=== PATIENT | male | born 1965 | race Caucasian/White ===

== ENCOUNTER 2017-03-01 08:10 | Emergency (ER) | payer SELFPAY ==
[2017-03-01] MEDS ORDERED: ORPHENADRINE CITRATE 30 MG/ML VIAL IM ONE (08:23)
[2017-03-01] MEDS ORDERED: KETOROLAC TROMETHAMINE 30 MG/ML VIAL IM ONE (08:23)
[2017-03-01] MEDS ORDERED: ORPHENADRINE CITRATE 30 MG/ML VIAL ONE (08:26)
[2017-03-01] MEDS ORDERED: KETOROLAC TROMETHAMINE 30 MG/ML VIAL ONE (08:26)
--- NOTE | 2017-03-01 08:57 | ERNOTE ---
Back Pain ER HPI Date of Service: 03/01/17 Presenting Symptoms: other - right back pain Time Seen by Provider: 03/01/17 08:19 Source: patient Exam Limitations: no limitations Immunizations: IMMUNIZATION HX Immunizations Up to Date Yes History of Influenza Vaccine No Hx Pneumococcal Vaccination No Allergies/Adverse Reactions: Allergies No Known Allergies Allergy (Verified 03/01/17 08:19) Home Medications: HOME MEDICATIONS Cyclobenzaprine HCl [Flexeril] 10 mg PO TID PRN #20 tab 03/01/17 [Last Taken Unknown] HYDROcodone/ACETAMINOPHEN [Calvert 5-325] 1 tab PO Q6H PRN #12 tab 03/01/17 [Last Taken Unknown] Narrative: Patient presents to the ED for right back pain. This has been going on since yesterday am. 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 He started to have cramping right mid back yesterday am at work. He states he cannot recall any specific injury but he could feel his right back cromping up. He states he has had back muscle cramps before and this is what it felt like but it hasn't gone away and has been worse. He relates it to his right flank area. No CP or SOB. No pleuritic pain. He states that it was "cramping up" all day but was worse overnight so he went to [facility] and got a topica patch but it did not seem to help much. His co-workers talked him in to be checked out. No radicular Sx. No CP or SOB. No dysuria. No N/T/W. No urinay Sx. He gets occasional abdominal cramps but noting concurrent with this pain. Timing: Reports: constant, other - constant pain but will "spasm up" and cause worenign pain Quality/Severity: Reports: moderate Location of pain: Reports: other - right flank area Recent Injury?: Reports: possibly Modifying Factors - (Improves): Reports: nothing Modifying Factors - (Worsens): Reports: other - palpation. Denies: cough/deep breaths Associated Symptoms: Denies: fever/chills, constipation/incontinence, nausea/ vomiting, problems urinating, difficulty walking, numbess/weakness in legs Prior Treament: Denies: recently seen Review of Systems - Review of Systems Constitutional: Absent: fever ENT: Absent: sore throat Respiratory: Absent: shortness of breath Cardiology: Absent: chest pain Gastrointestinal/Abdominal: Present: See HPI, constipation. Absent: vomiting Genitourinary: Absent: frequency Musculoskeletal: Present: See HPI Skin: Absent: rash Neurological: Absent: dizziness/light-headedness, weakness, numbness, tingling - Patient's Past Medical History Patient History - Medical: No pertinent hx Patient History - Cardiac/Respiratory: No pertinent hx Patient History - Cancer: No Hx of Cancer Patient History - Surgical Procedures: Appendectomy Patient History - Other: None - Social History Living Situations: home Abuse History: No History of abuse Psych History: No pertinent hx Smoking Status: Current every day smoker Have you smoked in the past 12 months: Yes Alcohol Use: rarely Drug Use: none - Immunizations Immunizations Up to Date: Yes Hx Pneumococcal Vaccination: No History of Influenza Vaccine: No Physical Exam - Physical Exam General Appearance: Present: alert, no apparent distress Eye Exam: Normal inspection: bilateral, PERRL: bilateral Ears, Nose, Throat: Present: normal ENT inspection Neck: Present: normal inspection Respiratory: Present: no respiratory distress, normal breath sounds, no accessory muscle use, lungs clear Cardiovascular/Chest: Present: regular rate, rhythm, normal peripheral pulses Gastrointestinal/Abdominal: Present: normal bowel sounds, nontender, soft. Absent: tenderness Back Exam: Present: other - There is tenderness over the lowest right rib which seems to reproduce his pain. No vertebral tenderness of T/L spine. Clinically this seems to be muscular. No clear CVA tenderness. Extremity Exam: Present: normal inspection, normal range of motion Neurological Exam: Present: alert, normal mood/affect, no motor/sensory deficits , dip tanker II-XII nml as tested, normal cerebellar test, other - Normal patellar tendon reflexes. Full LE strength and sensation. No cauda equina syndrome or neuro deficit. . Absent: facial droop, motor weakness Skin Exam: Present: other - mild redness right flank area but he relates this is from rubbing it and applying the patch from [facility] ED Progress - Results and Orders Patient's Lab Results:: I have reviewed the patient's lab results. - Vital Signs Patient's Vital Signs:: I have reviewed the patient's vital signs. Vital Signs: Vital Signs 03/01/17 03/01/17 08:14 08:32 Temperature 36.5 C Pulse Rate 72 71 Respiratory 16 16 Rate Blood Pressure 179/114 169/101 O2 Sat by Pulse 99 99 Oximetry - X-Ray X-Ray #1 Interpretation: Interp. by me X-ray Comments: CXR, NAPP - Progress/Reassessment Chief Complaint: Back Pain Progress Note-Subjective: 03/01/17 10:06 Feels improved with Meds. I can clearly reproduce his tendenress with palpation of the musculature right last rib/CVA area. Clinically nothing to suggets kidney stone and with no blood in UA (no infection either) I do not feel CT indicated. Nothign clinically would suggest PE, aortic dissection, ACS or intra-abdominal process. No other evidence of life threat at this time based on Hx or exam. He feels like going home. He leaves for [place], his home, tomorrow. I discussed warning signs and reasons to return as well as the need for close f/u. Departure Clinical Impression: Musculoskeletal pain - Departure Disposition: Home self-care Condition: Stable Instructions: Musculoskeletal Pain Additional Instructions: Rest. Fluids. Pain medications as directed, no driving while taking. Ibuprofen. Follow-up Sunday with your primary doctor when you get back home. Return here for increased pain, numbness, tingling, weakness, fever or if your condition worsens or changes in any way. Prescriptions: Cyclobenzaprine HCl [Flexeril] 10 mg PO TID PRN #20 tab PRN Reason: MUSCLE SPASMS HYDROcodone/ACETAMINOPHEN [Calvert 5-325] 1 tab PO Q6H PRN #12 tab PRN Reason: Pain
[2017-03-01 09:16] LABS: Urine Bilirubin Negative (NEGATIVE); Urine Blood Negative /ul (NEGATIVE); Urine Ketone Negative (NEGATIVE); Urine Nitrite Negative (NEGATIVE); Urine Protein 15 mg/dL (NEGATIVE); Urine Urobilinogen Normal (NORMAL)
[2017-03-01 09:28] LABS: Urine Appearance Clear; Urine Bacteria 2+; Urine Color Yellow; Urine RBC TRACE /hpf (0-5); Urine WBC 0-5 /hpf (0-5)
[2017-03-01 10:21] VITALS: BP 164/102
== END 2017-03-01 10:23 | disposition home or self-care (01) ==
LOC: ER 08:10
DX: M62.830 Muscle spasm of back (principal); F17.210 Nicotine dependence, cigarettes, uncomplicated